=== PATIENT | female | born 1980 | race Two or more races ===

== ENCOUNTER 2019-12-24 03:37 | Emergency (ER) | payer SELFPAY ==
[~2019-12-24] VITALS: Ht 162.6 cm; Wt 61.2 kg
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
--- NOTE | 2019-12-24 04:05 | NUR ---
PT SIGNED WAIVER
[2019-12-24] MEDS ORDERED: ONDANSETRON 4 MG TAB.RAPDIS ONE (04:07)
[2019-12-24] MEDS ORDERED: KETOROLAC TROMETHAMINE INJ 60 MG/2 ML VIAL IM ONE ×2 (04:07→04:30)
--- NOTE | 2019-12-24 04:20 | NUR ---
PT BROUGHT BY RADIOLOGY TO CT
--- NOTE | 2019-12-24 04:26 | NUR ---
PT RETURNED TO CT
[2019-12-24] MEDS ORDERED: ONDANSETRON 4 MG TAB.RAPDIS SL ONE (04:30)
[2019-12-24] MEDS ORDERED: ACETAMINOPHEN 325 MG TABLET PO ONE (04:30)
[2019-12-24] MEDS ORDERED: ACETAMINOPHEN 325 MG TABLET ONE (04:33)
[2019-12-24] MEDS ORDERED: METOCLOPRAMIDE HCL 10 MG TABLET ONE (04:57)
[2019-12-24 04:58] LABS: APPEARANCE,URINE CLEAR (CLEAR); BILIRUBIN,URINE NEGATIVE (NEGATIVE); BLOOD, URINE LARGE Ery/uL (NEGATIVE); COLOR,URINE YELLOW (YELLOW); KETONES,URINE NEGATIVE (NEGATIVE); LEUKOCYTE ESTERASE ,URINE TRACE (NEGATIVE); NITRITE, URINE NEGATIVE (NEGATIVE); PROTEIN,URINE NEGATIVE (NEGATIVE); UGLUCOSE NEGATIVE (NEGATIVE); UROBILINOGEN,URINE 0.2 EU/dL (0.2)
[2019-12-24] MEDS ORDERED: METOCLOPRAMIDE HCL 10 MG TABLET PO ONE (05:00)
[2019-12-24 05:09] LABS: BACTERIA,URINE None seen /HPF (None Seen); SQUAMOUS EPITHELIAL CELL,UR Few /HPF (None Seen); WBC,URINE 0-2 /HPF (0-3)
[2019-12-24 06:30] VITALS: BP 127/84
--- NOTE | 2019-12-24 06:30 | NUR ---
Patient discharged to home in stable condition. Written and verbal after care instructions given. Patient verbalizes understanding of instruction.
== END 2019-12-24 06:31 | disposition home or self-care (01) ==
LOC: ER 03:48
DX: N20.0 Calculus of kidney (principal); Z90.89 Acquired absence of other organs
CPT/HCPCS: 74176; 81001; 84703; 99284; J1885; J8597; Q0162; 81000-TC